=== PATIENT | female | born 1970 | race Caucasian/White ===

== ENCOUNTER → 2024-06-10 15:06 | Outpatient (BNVA) | payer BC, SELFPAY | PROVIDERS: PCP Family Medicine; Visit Provider Physician Assistant Surgical ==

== ENCOUNTER 2024-07-08 07:55 | Outpatient (AMB) | payer BC, SELFPAY ==
--- NOTE | 2024-07-08 08:17 | A.OFFVIS_ITS ---
VS Expanded 07/08/24 08:33 Height 5 ft 1 in Weight 242 lb 8 oz BMI 45.8 Body Fat % 47.6 Body Fat Mass 115.6 Fat Free Mass 127.2 Visceral Fat Rating 16 Body Water % 37.3 Body Water Mass 90.6 Basal Metabolic Rate/Score 1,800 Intake Visit Reasons: TV [facility] SWL BMI 45.9 Allergies amitriptyline Allergy (Intermediate, Verified 07/08/24 08:18) Rash prochlorperazine Allergy (Intermediate, Verified 07/08/24 08:18) Anxiety Sulfa (Sulfonamide Antibiotics) Allergy (Intermediate, Verified 07/08/24 08:18) rash soy Allergy (Mild, Verified 07/08/24 08:18) Gastrointestinal Upset Medication List - Last Reconciled 07/08/24 by Royal Carl MD albuterol sulfate 90 mcg/actuation 2 puffs inhalation Q6H PRN clonidine HCl 0.1 mg PO BEDTIME gabapentin 100 mg PO DAILY gabapentin 800 mg PO TID losartan 100 mg PO DAILY methocarbamol 750 mg PO TID PRN omeprazole 40 mg PO DAILY spironolactone 100 mg PO DAILY HPI HPI TV [facility] SWL BMI 45.9: Details: Start time: 8.10am, End time: 8.50am ?I spent 35 minutes speaking with the patient on the phone plus an additional 5 minutes reviewing and updating records for a total of 40 minutes HPI Comments Details: Previous weight loss efforts: Wegovy and Contrave (no weight loss), keto-diet Wakes up: 6am, Sleeps: 9.30pm Breakfast: skips Lunch: x3/wk (soups, or left over) Dinner: 6pm (chicken, vegetable, carbs) Snacks: (chips) before dinner Exercise: Has a treadmill and a stationary bike at home Fluids: Coffee (2 cups/day with cream and sugar), Tea: none, soda: none, juice: none, ETOH: 1/week (1 glass of wine) PFSH Medical History (Updated 07/08/24 @ 08:26 by Royal Carl MD) Asthma Factor V deficiency GERD (gastroesophageal reflux disease) DJD (degenerative joint disease) Hypertension Obstructive sleep apnea on CPAP Morbid obesity Surgical History (Updated 06/10/24 @ 15:50 by Hilton Milad, RN) Hx of thyroidectomy Hx of hysterectomy Hx laparoscopic cholecystectomy History of tonsillectomy Family History (Updated 06/10/24 @ 15:52 by Hilton Stinson RN) Mother Breast cancer Father Breast cancer Social History (Updated 06/10/24 @ 15:53 by Hilton Stinson RN) Alcohol intake: current Alcohol intake frequency: a few times a month Comment: social Patient Tobacco Use Status: Never used Tobacco Substance Use Type: Marijuana Telehealth Telehealth Telehealth Platform: Telephone Location of provider rendering services: practice address Location of patient: address on file Patient Identification confirmed using: Name, : Yes Telehealth method: voice only Patient verbally consented to treatment: Yes Patient verbally consented to billing insurance company: Yes Patient informed of any privacy concerns related to visit: Yes Minutes spent on Phone/Video with Pt.: 40 Assessment & Plan Assessment & Plan (1) Morbid obesity: Code(s): E66.01 - Morbid (severe) obesity due to excess calories Category: Medical Plan: 1.? Plan for lap sleeve gastrectomy. If diaphragmatic or ventral hernias are present at time of surgery, these will be repaired laparoscopically as well. Risks and complications were discussed in detail including possible conversion to an open procedure, anastomotic leak, bleeding requiring transfusion, small bowel obstruction, , DVT and pulmonary embolism, cardiac, or pulmonary complications, as septic tank installer complications such as anastomotic ulcer, insufficient weight loss and vitamin deficiencies. I emphasized the importance of close follow-up, adherence to instructions and good communication. 2. You will receive a link of our software leena to generate an individualized nutritional and exercise plan specific for you. Please send me a screenshot of the plans you will generate Meal to include lean meat (beef, fish, pork, turkey, chicken), or ethiopian yogurt, or egg whites, or beans with a salad with olive oil and fruits (berries, pears, apples, kiwi). Avoid salt, breads, potatoes, rice, pasta, desserts. ?3. If you choose shakes, each shake would be drunk slowly, like coffee in a period of 2 hours. ?4. If you choose bars, cut each bar in 4 pieces and eat each piece in 30min ?to make each bar last 2 hours. ?5. I emphasized the importance of measuring accurately the food portion and measure it when serving the food in plate ?6. The meal portions include a specific number of forks of meat and salad. You always eat the meat portion but you can replace up to half of salad/vegetables portion with rice, potatoes or pasta, or a fruit ?if you like. The less you do it the better weight loss will be. ?7. One full-size fork is what it can be scooped on the fork without falling aside and not what can be bit with the fork. Use regular forks like those you find in a typical restaurant. ?8.? Please send me weight measurements as soon as possible and then once a week. Always include your diet and exercise plan. 9. The best choice would be to purchase a stationary bike, elliptical or tr eadmill at home that can track calories. Let me know if you do so I can give you an exercise plan. ?10.?Goal is to lose at least 1.5-2lbs per week ?12. Goal to lose 10% of your weight before surgery, which is about 24lbs. Ultimate weight goal: 218lbs before surgery 13. Please follow the diet plan exactly without any change. If you don't like something about the plan or you feel hungry you need to communicate with me so I can help you revise the plan. You should not change the plan yourself. 14. To be scheduled for EGD due to history of GERD. The possibility of biopsies was discussed. Patient needs to avoid use of NSAIDs and aspirin for 1 week prior to EGD. Risks of perforation and bleeding was discussed with the patient. This will be an outpatient procedure with IV sedation. 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, E66.01 - Morbid (severe) obesity due to excess calories, G47.33 - Obstructive sleep apnea (adult) (pediatric), I10 - Essential (primary) hypertension, J45.909 - Unspecified asthma, uncomplicated, K21.9 - Gastro-esophageal reflux disease without esophagitis Ferritin Today 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, E66.01 - Morbid (severe) obesity due to excess calories, G47.33 - Obstructive sleep apnea (adult) (pediatric), I10 - Essential (primary) hypertension, J45.909 - Unspecified asthma, uncomplicated, K21.9 - Gastro-esophageal reflux disease without esophagitis US abdomen comp w elastography Today 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 ECG 12 lead EKG Today 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, E66.01 - Morbid (severe) obesity due to excess calories, G47.33 - Obstructive sleep apnea (adult) (pediatric), I10 - Essential (primary) hypertension, J45.909 - Unspecified asthma, uncomplicated, K21.9 - Gastro-esophageal reflux disease without esophagitis Insulin Today 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, E66.01 - Morbid (severe) obesity due to excess calories, G47.33 - Obstructive sleep apnea (adult) (pediatric), I10 - Essential (primary) hypertension, J45.909 - Unspecified asthma, uncomplicated, K21.9 - Gastro-esophageal reflux disease without esophagitis Hemoglobin A1c Today 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, E66.01 - Morbid (severe) obesity due to excess calories, G47.33 - Obstructive sleep apnea (adult) (pediatric), I10 - Essential (primary) hypertension, J45.909 - Unspecified asthma, uncomplicated, K21.9 - Gastro-esophageal reflux disease without esophagitis H Pylori Breath Test Today 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 Complete Blood Count Auto Diff Today 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 Lipid 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, E66.01 - Morbid (severe) obesity due to excess calories, G47.33 - Obstructive sleep apnea (adult) (pediatric), I10 - Essential (primary) hypertension, J45.909 - Unspecified asthma, uncomplicated, K21.9 - Gastro-esophageal reflux disease without esophagitis IRON PROFILE Today 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 C Reactive Protein Today 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 Vitamin B1 Today 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, E66.01 - Morbid (severe) obesity due to excess calories, G47.33 - Obstructive sleep apnea (adult) (pediatric), I10 - Essential (primary) hypertension, J45.909 - Unspecified asthma, uncomplicated, K21.9 - Gastro-esophageal reflux disease without esophagitis TSH reflex Free T4 Today 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 Vitamin D 25-OH Total Today 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 XR chest 2V Today 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, E66.01 - Morbid (severe) obesity due to excess calories, G47.33 - Obstructive sleep apnea (adult) (pediatric), I10 - Essential (primary) hypertension, J45.909 - Unspecified asthma, uncomplicated, K21.9 - Gastro-esophageal reflux disease without esophagitis FL upper GI w air Today 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 Referrals Nutrition/Dietitian Referral 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 Behavioral Health Referral 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
[2024-07-08 08:33] VITALS: BMI 45.8
== END 2024-07-08 08:51 | disposition home or self-care (01) ==
LOC: HO.HBS 07:55
PROVIDERS: PCP Family Medicine; Visit Provider Surgery
DX: E66.01 Morbid (severe) obesity due to excess calories (principal)
CPT/HCPCS: 99203

== ENCOUNTER → 2024-07-08 07:55 | Outpatient (BNVA) | payer BC, SELFPAY | PROVIDERS: PCP Family Medicine; Visit Provider Surgery ==

== ENCOUNTER 2024-07-15 08:14 | Outpatient (REF) | payer BC, SELFPAY ==
--- NOTE | ~2024-07-15 | US_ITS ---
EXAMINATION: US COMPLETE ABDOMEN WITH LIVER ELASTOGRAPHY CLINICAL INFORMATION: Morbid obesity. COMPARISON: None available. TECHNIQUE: Real-time imaging of the abdominal viscera. Noninvasive ultrasound liver fibrosis assessment is performed using Jaki ElastPQ point quantification shear wave elastography (pSWE) with a C5-2 MHz transducer. Multiple elastography samples are obtained. FINDINGS: PANCREAS: The visualized pancreas appears unremarkable but the pancreatic tail is obscured by bowel gas. ABDOMINAL AORTA: The proximal, middle, and distal aortic segments are normal in caliber. INFERIOR VENA CAVA: Visualized portions are normal. LIVER: The liver is enlarged measuring just under 19 cm in greatest length with increased echogenicity consistent with hepatic steatosis. No focal lesion or intrahepatic biliary duct dilatation. The right lobe measures 18.7 cm in length. The left lobe measures 16.2 cm in length. Portal flow is towards the liver (hepatopetal). Shear wave liver elastography median stiffness is 1.56 m/s (reference: normal median stiffness is 1.3 m/s or less). IQR/median stiffness to assess sampling precision is 0.06 (reference: good quality data set is IQR/median stiffness of 0.15 or less). GALLBLADDER: Status post cholecystectomy. COMMON BILE DUCT: Normal in caliber measuring 0.4 cm in diameter. RIGHT KIDNEY: Normal. No hydronephrosis. No renal calculi or focal parenchymal lesions. The kidney measures 11.1 cm in maximum dimension. LEFT KIDNEY: Normal. No hydronephrosis. No renal calculi or focal parenchymal lesions. The kidney measures 10.5 cm in maximum dimension. SPLEEN: Normal. The spleen measures 10.3 cm in maximum dimension. FREE FLUID: None. US/US abdomen comp w elastography IMPRESSION: 1. Enlarged fatty liver. 2. Liver elastography: In the absence of other known clinical signs, measurements rule out compensated advanced chronic liver disease. If there are known clinical signs, further testing may be needed for confirmation. REFERENCE: Society of Radiologists in Ultrasound Liver Stiffness Thresholds (2020): LIVER STIFFNESS THRESHOLDS: *Liver Stiffness equal or less than 1.3 m/s: High probability of being normal. *Liver Stiffness less than 1.7 m/s: In the absence of other known clinical signs, rules out compensated advanced chronic liver disease. *Liver Stiffness 1.7-2.1 m/s: Suggestive of compensated advanced chronic liver disease but need further test for confirmation. *Liver Stiffness over 2.1 m/s: Rules in compensated advanced chronic liver disease. *Liver Stiffness over 2.4 m/s: Suggestive of clinically significant portal hypertension. QUALITY OF DATA SET: *IQR/Median value equal or less than 0.15 implies a quality data set. *IQR/Median value over 0.15 implies a poor quality data set. SIGNIFICANT CHANGE FROM PRIOR EXAM: Significant change if liver stiffness measurement is 10% or greater from prior exam. OTHER CONSIDERATIONS: The stage of liver fibrosis may be overestimated in the setting of acute hepatitis, liver inflammation, elevated liver function tests, hepatic vascular congestion, obstructive cholestasis, non-fasting state, and infiltrative diseases such as amyloidosis and lymphoma. In some patients with NAFLD, the liver stiffness thresholds for compensated advanced chronic liver disease may be lower. In causes other than viral hepatitis and NAFLD, liver stiffness thresholds are not well established. Electronically signed by: Antoine Avalos MD 07/20/2024 05:05 PM EDT
--- NOTE | ~2024-07-15 | XR_ITS ---
EXAMINATION: XR CHEST CLINICAL INFORMATION: E66.01 - Morbid (severe) obesity due to excess calories COMPARISON: None available. TECHNIQUE: 2 views of the chest were obtained. FINDINGS: The cardiac, hilar, and mediastinal contours are normal. The lungs are clear bilaterally. There is no pneumothorax or pleural effusion. There is no focal osseous or soft tissue abnormality. There are cholecystectomy clips noted. XR/XR chest 2V IMPRESSION: Normal chest. Electronically signed by: Sourav Piña MD 09/24/2024 09:17 PM [facility]
--- NOTE | 2024-07-15 09:02 | ECG_ITS ---
Test Reason : MOR OBS Blood Pressure : / mmHG Vent. Rate : 075 BPM Atrial Rate : 075 BPM P-R Int : 140 ms QRS Dur : 082 ms QT Int : 400 ms P-R-T Axes : 034 -06 025 degrees QTc Int : 446 ms Normal sinus rhythm Possible Inferior infarct , age undetermined Abnormal ECG No previous ECGs available Referred By: Royal Carl Electronically Signed By:NICK BOLES
[2024-07-15 09:21] LABS: MANUAL DIFF FLAG NO
[2024-07-15 09:44] LABS: Basophils Absolute Auto 0.1 X10*3/uL (0.0-0.2); Basophils Percent Auto 0.8 % (0-2); Hematocrit 42.4 % (37.0-47.0); Hemoglobin 14.6 g/dl (12.0-16.0); Imm Gran Abs Auto 0.08 X10*3/uL (0.00-0.03); Imm Gran Pct Auto 0.8 % (0.0-0.4); Lymphocytes Absolute Auto 2.6 X10*3/uL (1.2-4.9); Lymphocytes Percent Auto 25.8 % (20-40); Mean Corpuscular HGB Conc 34.4 g/dl (31.0-35.0); Mean Corpuscular Volume 101.7 fL (80.0-98.0); Mean Platelet Volume 9.5 fL (9.4-12.3); Monocytes Absolute Auto 0.8 X10*3/uL (0.1-1.2); Monocytes Percent Auto 7.5 % (2-11); Neutrophils Absolute Auto 6.7 x10*3/uL (2.0-8.3); Neutrophils Percent Auto 65.1 % (45-73); Platelet Count 313 X10*3/uL (160-400); Red Blood Count 4.17 X10*6/uL (4.20-5.50); Red Cell Distribution Width 12.7 % (11.0-16.0); White Blood Count 10.2 X10*3/uL (4.8-10.8)
[2024-07-15 10:35] LABS: Alanine Aminotransferase 30 U/L (0-31); Albumin Level 4.4 g/dL (3.5-5.0); Alkaline Phosphatase 83 U/L (39-117); Anion Gap 12 (12-20); Aspartate Amino Transferase 35 U/L (5-31); Bilirubin Total 0.6 mg/dL (0.0-1.0); Blood Urea Nitrogen 12 mg/dL (9-16); C Reactive Protein 0.56 mg/dL (< or = 0.50); Calcium 9.1 mg/dL (8.4-10.2); Carbon Dioxide 28 mmol/L (22-29); Chloride 105 mmol/L (96-108); Cholesterol 276 mg/dL (<200); Estimated Glomerular Filt Rate > 60; Glucose Random 103 mg/dL (60-115); HDL Cholesterol 63 mg/dL (>40); Iron 149 mcg/dL (30-160); Percent Iron Saturation 39 % (15-50); Sodium 141 mmol/L (135-145); Total Iron Binding Capacity 381 mcg/dL (228-428); Total Protein 6.9 g/dL (6.5-8.0); Triglycerides 401 mg/dL (<150); Unsaturated Iron Binding 232 ug/dL
[2024-07-15 10:37] LABS: Ferritin 164 ng/mL (10-250); Insulin 9 uU/mL (2-29); TSH reflex Free T4 0.49 uIU/mL (0.32-4.0); Vitamin D 25-OH Total 10.4 ng/mL (>30)
[2024-07-15 10:43] LABS: Folate 8.5 ng/mL (> or = 4.0); Vitamin B12 267 pg/mL (200-900)
[2024-07-15 11:01] LABS: Estimated Average Glucose 97 mg/dL
[2024-07-19 05:08] LABS: Zinc 76 mcg/dL (60-130)
[2024-07-20 19:48] LABS: Vitamin A 76 mcg/dL (38-98)
[2024-07-23 10:09] LABS: Vitamin B1 15 nmol/L (8-30)
== END 2024-07-15 08:15 | disposition home or self-care (01) ==
LOC: HO.US 08:14
PROVIDERS: PCP Family Medicine; Visit Provider Surgery
DX: E66.01 Morbid (severe) obesity due to excess calories (principal); G47.33 Obstructive sleep apnea (adult) (pediatric); I10 Essential (primary) hypertension; K21.9 Gastro-esophageal reflux disease without esophagitis; D68.2 Hereditary deficiency of other clotting factors; J45.909 Unspecified asthma, uncomplicated; Z13.1 Encounter for screening for diabetes mellitus
CPT/HCPCS: 36415; 71046; 76700; 76981; 80053; 80061; 82306; 82607; 82728; 82746; 83036; 83525; 83540; 84425; 84443; 84590; 84630; 85025; 86140; 93005

== ENCOUNTER → 2024-07-15 08:16 | Outpatient (BNV) | payer BC, SELFPAY | PROVIDERS: PCP Family Medicine; Visit Provider Radiology Diagnostic Radiology | DX: E66.01 Morbid (severe) obesity due to excess calories (principal) | CPT/HCPCS: 71046 ==

== ENCOUNTER → 2024-07-27 12:45 | Outpatient (BNVA) | payer BC, SELFPAY | PROVIDERS: PCP Family Medicine; Visit Provider Counselor Mental Health ==

== ENCOUNTER → 2024-07-27 12:45 | Outpatient (AMB) | payer BC, SELFPAY ==
--- NOTE | 2024-07-27 12:00 | MHC.WMTHER ---
Intake Intake Visit Reasons: VIDEO Intake Allergies amitriptyline Allergy (Intermediate, Verified 07/28/24 07:26) Rash prochlorperazine Allergy (Intermediate, Verified 07/28/24 07:26) Anxiety Sulfa (Sulfonamide Antibiotics) Allergy (Intermediate, Verified 07/28/24 07:26) rash soy Allergy (Mild, Verified 07/28/24 07:26) Gastrointestinal Upset PFSH Medical History Abnormal EKG Asthma Factor V deficiency GERD (gastroesophageal reflux disease) DJD (degenerative joint disease) Hypertension Obstructive sleep apnea on CPAP Morbid obesity Surgical History Hx of thyroidectomy Hx of hysterectomy Hx laparoscopic cholecystectomy History of tonsillectomy Family History Mother Breast cancer Father Breast cancer Social History Alcohol intake: current Alcohol intake frequency: a few times a month Comment: social Patient Tobacco Use Status: Never used Tobacco Substance Use Type: Marijuana Behavioral Health Assessment Weight Management Therapy Therapy Notes Details PT is a 54 year old Female, who presents for a visit to complete assessment as part of surgical weight loss program. PT presents very overwhelmed about sudden changes but reports she's interested in changing her life for the good, become a healthier and active person. Presenting Concerns Referral Source WMP-Provider, PT sees Dr. Colin and had initial session on 06/07/24 Reason for referral Completion of behavioral health assessment as part of process for weight-loss surgery. Precipitating Event Obesity Living Situation Current Living Situation Own and Relative's/Guardian's Hermilo At risk of losing current housing? No Satisfied with current living situation? Yes Comments PT lives with and their dog. Food/Weight/Diet Expectations of change Initial Goal to lose 10% of her weight before surgery, which is about 24lbs. Ultimate weight goal: 218lbs before surgery Patient wants feels healthier again, be active and be there for her grandkids. PT is implementing the following: Current meal plan: 3 shakes, 1 meal (8F/8F) at 6pm, 1 extra shake at 7pm Exercise plan: Burn 240Calories in stationary bike. Currently not exercising. History/Relationship with food PT reports she feels her issues are not eating the right foods, having snacks during the day while at work, then dinner was after 7pm with multiple carbs in the meal. States she doesn't eat with feelings but sometimes after a bad day she would do take out instead of cooking. Example of meals before starting the program: Breakfast: never/skips - Coffee only with cream. Lunch: leftovers from night before, sometimes water with coffee and a small bag of chips. Dinner: always a meat, a vegetable, and a starch (example, porch, mash potatoes and veggies). take our 1-2 times at week or a month, the go to was pizza, [place] food or burgers. Snacks: once in a while. chocolate, chips. Drinks/Liquids: 2 Gatorade at day, 4-5 bottles of water, 1 glass of wine w/ dinner, at least 1 coffee in the morning (8oz). History/Relationship with weight Always thick. Ever since she had her daughter was never at her pre- weight. In the last 10 years, the patient's Lowest weight was around 198Lbs and highest 242Lbs. History/Relationship with dieting Weight watchers, lost 20Lbs but then got . Ramiro, had side effects. Prescription weight-loss, was nauseous. Last years she did Hypnosis with [facility] diet. Lost 30Lbs but gained the weigh back after going back to old habits. Binge Eating Do you frequently eat large amounts of food in short periods of time, not feeling physically hungry? No Do you feel out of control when you eat a large amount of food in a short period of time? No Do you eat large amounts of food rapidly and typically alone? No Night Eating Do you wake up at least once during the night to eat? No If you wake up in the night, do you find that it is necessary to eat something in order to fall back asleep? No Do you have little or no appetite in the morning and feel very hungry in the evening, often overeating between dinner and when you go to bed? No Social History Family history and relationship PT is 27 years ago, they have 1 daughter who is 28 y/o. Parents are alive and live in [place] and she has 1 brother. Very close to her 's family who lives in the same town. 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 Developmental history and status None reported Currently WNL. Social support , daughter, parents. Community support Coworkers are very encouraging Mu-Ism/Spirituality Bahai. Cultural/Ethnic information . Legal Involvement and History Current or historical involvement with the legal system? None reported. Education Highest grade completed Some college. Preferred learning style Learn by doing Currently enrolled in educational program? No Interested in further educational program? 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 No Meaningful activities watch TV, likes to be around people, enjoy her home. Financial Situation Describe current financial situation Occasional struggle and Often struggles with finance Financial assistance? SSI (From .) and Contributions from your family/friends Service Service? No Mental Health and Addiction Treatment Current/Past substance abuse? Yes (Cannabis since age 23.) Comments Alcohol: couple times at week with dinner, 1 glass of wine. Cigarettes/Tobacco: None. Cannabis/Edibles: Smoke cannabis daily at night for sleep. Current/Past addictive behavior concerns? No Psychiatric history PT has been in counseling before. last time 8 years ago due to life stressors and around that time she took some medication. Questionnaires PHQ-9 Over the last 2 weeks, how often have you been bothered by any of the following problems? 1. Little interest or pleasure in doing things: several days 2. Feeling down, depressed, or hopeless: not at all 3. Trouble falling or staying asleep, or sleeping too much: nearly every day 4. Feeling tired or having little energy: nearly every day 5. Poor appetite or overeating: several days 6. Feeling bad about yourself - or that you are a failure or have let yourself or your family down: nearly every day 7. Trouble concentrating on things, such as reading the newspaper or watching television: not at all 8. Moving or speaking so slowly that other people could have noticed. Or the opposite - being so fidgety or restless that you have been moving around a lot more than usual: not at all 9. Thoughts that you would be better off or of hurting yourself in some way: not at all Total score: 11 Depression Screening Interpretation: Positive (Scores from new PT pack.) Depression Screening Done: Yes Source: Developed by Drs. Eddie Gayle, Niurka Harrell, Aguilar Roque and colleagues, with an educational xenia from [employer]. Binge Eating Scale Group 1 A. I don't feel self-conscious about my wt. or body size when I'm with others. B. I feel concerned about how I look to others, but it normally does not make me fell disappointed with myself C. I do get self-conscious about my appearance and wt. which makes me feel disappointed in myself. D. I feel very self-conscious about my wt. and frequently I feel intense shame and disgust for myself. I try to avoid social contacts because of my self-consciousness. Response Group 1: C Group 2 A. I don't have any difficulty eating slowly in the proper manner. B. Although I seem to gobble down foods, I don't end up feeling stuffed because of eating to much. C. At times, I tend to eat quickly and then, I feel uncomfortably full afterwards. D. I have the habit of bolting down my food, without really chewing it. When this happens I usually feel uncomfortably stuffed because I've eaten to much. Response Group 2: A Group 3 A. I feel capable to control my eating urges when I want to. B. I feel like I have failed to control my eating more than the average person. C. I feel utterly helpless when it comes to feeling in control of my eating urges. D. Because I feel so helpless about controlling my eating I have become very desperate about trying to get control. Response Group 3: A Group 4 A. I don't have the habit of eating when I'm bored. B. I sometimes eat when I'm bored, but often I'm able to get busy and get my mind off food. C. I have a regular habit of eating when I'm bored, but occasionally, I can use some other activity to get my mind off eating. D. I have a strong habit of eating when I'm bored. Nothing seems to help me breath the habit. Response Group 4: A Group 5 A. I'm usually physically hungry when I eat something. B. Occasionally, I eat something on impulse even though I really am not hungry. C. I have the regular habit of eating foods, that I might not really enjoy, to satisfy a hungry feeling even though physically, I don't need the food. D. Although I'm not physically hungry, I get a hungry feeling in my mouth that only seems to be satisfied when I eat a food, like sandwich, that fills my mouth. Sometimes, when I eat the food to satisfy my mouth hunger, I then spit the food out so I won't gain weight. Response Group 5: A Group 6 A. I don't feel any guilt or self-hate after I overeat. B. After I overeat, occasionally I feel guilt or self-hate. C. Almost all the time I experience strong guilt or self-hate after I overeat. Response Group 6: A Group 7 A. I don't lose total control of my eating when dieting even after periods when I overeat. B. Sometimes when I eat a forbidden food on a diet, I feel like I blew it and eat even more. C. Frequently, I have the habit of saying to myself, I've blown it now, why not go all the way, when I overeat on a diet. When that happens I eat more. D. I have a regular habit of starting a strict diets for myself but I break the diets by going on an eating binge. My life seems to be either a feast or famine. Response Group 7: D Group 8 A. I rarely eat so much food that I feel uncomfortably stuffed afterwards. B. Usually about once a month, I each such a quantity of food, I end up feeling very stuffed. C. I have regular periods during the month when I eat large amounts of food, either at mealtime or at snacks. D. I eat so much food that I regularly feel quite uncomfortable after eating and sometimes a bit nauseous. Response Group 8: A Group 9 A. My level of calorie intake does not go up very high or go down very low on a regular basis. B. Sometimes after I overeat, I will try to reduce my caloric intake to almost nothing to compensate for the excess calories I've eaten. C. I have a regular habit of overeating during the night. It seems that my routine is not to be hungry in the morning but overeat in the evening. D. In my adult years, I have had week-long periods where I practically starve myself. This follows periods when I overeat. It seems I live a life of either feast or famine. Response Group 9: A Group 10 A. I usually am able to stop eating when I want to. I know when enough is enough. B. Every so often, I experience a compulsion to eat which I can't seem to control. C. Frequently, I experience strong urges to eat which I seem unable to control, but at other times I can control my eating urges. D. I feel incapable of controlling urges to eat. I have a fear of not being able to stop eating voluntarily. Response Group 10: B Group 11 A. I don't have any problem stopping eating when I feel full. B. I usually can stop eating when I feel full but occasionally overeat leaving me feeling uncomfortably stuffed. C. I have a problem stopping eating once I start and usually I feel uncomfortably stuffed after I eat a meal. D. Because I have a problem not being able to stop eating when I want, I sometimes have to induce vomiting to relieve my stuffed feeling. Response Group 11: B Group 12 A. I seem to eat just as much when I'm with others, Family social gatherings as when I'm by myself. B. Sometimes, when I'm with other persons, I don't eat as much as I want to eat because I'm self-conscious about my eating. C. Frequently, I eat only a small amount of food when others are present, because I'm very embarrassed about my eating. D. I feel so ashamed about overeating that I pick times to overeat when I know no one will see me. I feel like a closet eater. Response Group 12: A Group 13 A. I eat three meals a day with only an occasional between meal snack. B. I eat 3 meals a day, but I also normally snack between meals. C. When I am snacking heavily, I get in the habit of skipping regular meals. D. There are regular periods when I seem to be continually eating, with no planned meals. Response Group 13: D Group 14 A. I don't think much about trying to control unwanted eating urges. B. At least some of the time, I feel my thoughts are pre-occupied with trying to control my eating urges. C. I feel that frequently I spend much time thinking about how much I ate or about trying not to eat anymore. D. It seems to me that most of my waking hours are pre-occupied by thoughts about eating or not eating. I feel like I'm constantly struggling not to eat. Response Group 14: A Group 15 A. I don't think about food a great deal. B. I have strong craving for food but they last only for brief periods of time. C. I have days when I can't seem to think about anything else but food. D. Most of my days seem to be pre-occupied with thoughts about food. I feel like I live to eat. Response Group 15: A Group 16 A. I usually know whether or not I'm physically hungry. I take the right portion of food to satisfy me. B. Occasionally, I feel uncertain about knowing whether or not I'm physically hungry. A these times it's hard to know how much food I should take to satisfy me. C. Even though I might know how many calories I should eat, I don't have any idea what is a normal amount of food for me. Response Group 16: C Binge Eating Score: 12 Score less than 17 Minimal Risk Score between 18-26 Moderate Risk Score between 27-46 High Risk Assessment & Plan Assessment & Plan (1) Adjustment disorder, unspecified: Code(s): F43.20 - Adjustment disorder, unspecified Plan PT not cleared today. We will meet again on 08/15/24 at 10am, to continue assessment. Telehealth Telehealth Telehealth Platform: [facility] Location of provider rendering services: other ([place], [place]) Location of patient: other ([facility]) Patient Identification confirmed using: Name, : Yes Telehealth method: voice only Patient verbally consented to treatment: Yes Patient verbally consented to billing insurance company: Yes Patient informed of any privacy concerns related to visit: Yes Minutes spent on Phone/Video with Pt.: 60 Coding Level of Care Code New Pt Tele Psy Diag Feng ([id number]) Patient Type New Diagnoses Adjustment disorder, unspecified F43.20 Time Spent (min) 60 Comment Start time: 12:00pm, End time: 1:00pm
== END ==
LOC: HO.HBST 12:45
PROVIDERS: PCP Family Medicine; Visit Provider Counselor Mental Health
DX: F43.20 Adjustment disorder, unspecified (principal)
CPT/HCPCS: 90791

== ENCOUNTER 2024-07-28 06:55 | Day surgery (SDC) | payer BC, SELFPAY ==
[2024-07-26 10:54] VITALS: BMI 45.7
--- NOTE | 2024-07-26 14:30 | HO.ANESPROP2 ---
Documented by User: Keren Broussard NP 07/26/24 14:31 HPI - Anesthesia Eval Consult details Narrative: 54yo F for Upper Endoscopy PMFSH Active Problems Active Problems: All Active Problems Abnormal EKG (Acute) Asthma (Acute) Factor V deficiency (Acute) GERD (gastroesophageal reflux disease) (Acute) DJD (degenerative joint disease) (Acute) Hypertension (Acute) Obstructive sleep apnea on CPAP (Acute) Morbid obesity (Acute) Past Medical History Medical History Abnormal EKG Asthma Factor V deficiency GERD (gastroesophageal reflux disease) DJD (degenerative joint disease) Hypertension Obstructive sleep apnea on CPAP Morbid obesity Family History Family History Mother Breast cancer Father Breast cancer Surgical History Surgical History Hx of thyroidectomy Hx of hysterectomy Hx laparoscopic cholecystectomy History of tonsillectomy Social History Social History Alcohol intake: current Alcohol intake frequency: a few times a month Comment: social Patient Tobacco Use Status: Never used Tobacco Use of substances other than those prescribed or required for medical reasons: Yes Substance Use Type: Marijuana Are you DNR?: No Advance Directives: No Advance Directives Information Provided: Yes Meds Allergies Allergy/AdvReac Type Severity Reaction Status Date / Time amitriptyline Allergy Intermediate Rash Verified 07/28/24 07:26 prochlorperazine Allergy Intermediate Anxiety Verified 07/28/24 07:26 Sulfa (Sulfonamide Allergy Intermediate rash Verified 07/28/24 07:26 Antibiotics) soy Allergy Mild Gastrointestinal Verified 07/28/24 07:26 Upset Home Medications ?Medication ?Instructions ?Recorded ?Confirmed ?Last Taken ?Type clonidine HCl 0.1 mg tablet 0.1 mg PO BEDTIME 06/10/24 07/28/24 Unknown History gabapentin 100 mg capsule 100 mg PO DAILY 06/10/24 07/28/24 Unknown History gabapentin 800 mg tablet 800 mg PO TID 06/10/24 07/28/24 Unknown History losartan 100 mg tablet 100 mg PO DAILY 06/10/24 07/28/24 Unknown History methocarbamol 750 mg tablet 750 mg PO TID PRN Pain 06/10/24 07/28/24 Unknown History albuterol sulfate 90 mcg/actuation 2 puff inhalation Q6H PRN SOB 07/08/24 07/28/24 Unknown History aerosol inhaler omeprazole 40 mg capsule,delayed 40 mg PO DAILY 07/08/24 07/28/24 Unknown History release spironolactone 50 mg tablet 100 mg PO DAILY 07/08/24 07/28/24 Unknown History Exam Height,Weight and Vital Signs: Height 5 ft 1 in Weight 109.769 kg Assessment and Plan Assessment Anesthesia Assessment: Chart Reviewed Documented by User: Ngozi Painter MD 07/28/24 07:55 PMFSH Past Medical History Medical History Abnormal EKG Asthma Factor V deficiency GERD (gastroesophageal reflux disease) DJD (degenerative joint disease) Hypertension Obstructive sleep apnea on CPAP Morbid obesity Family History Family History Mother Breast cancer Father Breast cancer Surgical History Surgical History Hx of thyroidectomy Hx of hysterectomy Hx laparoscopic cholecystectomy History of tonsillectomy History of Problems with Anesthesia: No Social History Social History Alcohol intake: current Alcohol intake frequency: a few times a month Comment: social Patient Tobacco Use Status: Never used Tobacco Use of substances other than those prescribed or required for medical reasons: Yes Substance Use Type: Marijuana Are you DNR?: No Advance Directives: No Advance Directives Information Provided: Yes Meds Allergies Allergy/AdvReac Type Severity Reaction Status Date / Time amitriptyline Allergy Intermediate Rash Verified 07/28/24 07:26 prochlorperazine Allergy Intermediate Anxiety Verified 07/28/24 07:26 Sulfa (Sulfonamide Allergy Intermediate rash Verified 07/28/24 07:26 Antibiotics) soy Allergy Mild Gastrointestinal Verified 07/28/24 07:26 Upset Home Medications ?Medication ?Instructions ?Recorded ?Confirmed ?Last Taken ?Type clonidine HCl 0.1 mg tablet 0.1 mg PO BEDTIME 06/10/24 07/28/24 Unknown History gabapentin 100 mg capsule 100 mg PO DAILY 06/10/24 07/28/24 Unknown History gabapentin 800 mg tablet 800 mg PO TID 06/10/24 07/28/24 Unknown History losartan 100 mg tablet 100 mg PO DAILY 06/10/24 07/28/24 Unknown History methocarbamol 750 mg tablet 750 mg PO TID PRN Pain 06/10/24 07/28/24 Unknown History albuterol sulfate 90 mcg/actuation 2 puff inhalation Q6H PRN SOB 07/08/24 07/28/24 Unknown History aerosol inhaler omeprazole 40 mg capsule,delayed 40 mg PO DAILY 07/08/24 07/28/24 Unknown History release spironolactone 50 mg tablet 100 mg PO DAILY 07/08/24 07/28/24 Unknown History Exam Airway Mallampati Class: III TM Dist: >3cm Neck ROM: Full Loose/Missing/Broken Teeth: No Heart: RRR Lungs: CTA Assessment and Plan Assessment Anesthesia Assessment: Anesthesia Plan Discussed Final Anesthetic Review History of Problems with Anesthesia: No NPO: Yes ASA Class: III Final Preanesthetic Review: Meds/Allgs Chart Reviewed, Consent Obtained/Reviewed and Anes Risks/Benef Reviewed Patient Risk: Intermediate Procedure Risk: Intermediate Anesthetic Plan Anesthetic Plan: MAC: Disposition: Standard PACU
[2024-07-28 07:22] VITALS: BP 155/114; PULSE 87; RESP 18; TEMP 36.9; O2SAT 96; BMI 45.7
--- NOTE | 2024-07-28 07:37 | MHC.SHP ---
Pre-Procedural Eval Section A - 24 Hr Update-Section A only Date of Service: 07/28/24 The patient is an INPATIENT: No The patient has been examined within 24 hours of the surgical procedure. The History & Physical has been completed within 30 days and I have reviewed it.: Yes Section B - Complete if H&P > 30 days Chief Complaint: Morbid (severe) obesity due to excess calories Details of Present Illness: GERD Relevant Family History (Specify if Yes): No Relevant Social History: None Present Medications: None Medical History: No relevant PMH History of Previous Operations: No relevant previous surgery Allergies: Allergies Allergy/AdvReac Type Severity Reaction Status Date / Time amitriptyline Allergy Intermediate Rash Verified 07/28/24 07:26 prochlorperazine Allergy Intermediate Anxiety Verified 07/28/24 07:26 Sulfa (Sulfonamide Allergy Intermediate rash Verified 07/28/24 07:26 Antibiotics) soy Allergy Mild Gastrointestinal Verified 07/28/24 07:26 Upset Review of Systems Sugical H&P ROS: Negative: Constitution, Cardiovascular, Respiratory, Neurological, Psychiatric, Hem-Onc, Allergic/Immunologic, Gastrointestinal, Genitourinary, Musculoskeletal, Integumentary, Endocrine and Eyes/Ears/Nose/Throat Exam Surgical H&P Exam: Normal: HEENT, Normal: Heart, Normal: Lungs, Normal: Extremities, Normal: Abdomen, Normal: Skin and Normal: Neurological Plan Diagnosis/Plan: Unchanged (EGD to assess etiology of GERD. Risks of bleeding and perforation were discussed with the patient and she is in agreement with the plan.) I have reviewed the history and physical and performed a pertinent physical examination on my patient. No changes have occurred unless specified. Time Spent With Patient Time: Total time managing care of this patient today ____ minutes.
[2024-07-28] MEDS: Lactated Ringers 1,000 ML 100 ML IVCONT (07:38)
--- NOTE | 2024-07-28 07:48 | P.BOP_ITS ---
Brief Operative Note Date of Service: 07/28/24 Pre-op diagnosis: GERD Post-op diagnosis: same Procedure: PROCEDURE DATE: 07/28/2024 PREOPERATIVE DIAGNOSIS: GERD POSTOPERATIVE DIAGNOSIS: ?Same as above. 1) fixed modrate size hiatal hernia, 2) distal gastritis, 3) duodenitis, 4) bile reflux PROCEDURE: Lweutqcd-vgwiwa-oklfjfctokak with biopsies Surgeon: ?Myron Carl M.D.. Ph.D. Data Management Associate: None ? Anesthesia: IV sedation Estimated blood loss: ?Minimal FINDINGS AND PROCEDURE: ? OPERATIVE INDICATIONS: ?The patient is a 54 year old female known to me who is interested in bariatric surgery. The patient has GERD. Based on this information I recommended an upper endoscopy to evaluate the patient's symptoms. Risks and complications of the surgery were discussed with the patient in advance particularly the possibility of perforation or bleeding that may require surgical intervention. The patient understood the risks and was in agreement with the plan. ? PROCEDURE: After informed consent was obtained by the patient, the patient was ?transferred to the Operating Room and was placed in the supine position.? After successful induction of IV sedation, a mouth block was inserted and the patient was placed in the left lateral decubitus position. An upper endoscopy was performed next, the oropharynx and esophagus appeared within the normal limits. There was a moderate size fixed 4-5cm hiatal hernia with obvious bile reflux that was witnessed all the way to the upper esophagus. The z-line was smooth. Two biopsies were obtained from the distal esophagus 2-3 cm proximal to the GE junction and two additional biopsies from the GE junction. The stomach was entered and it appeared to be of normal size. There was gastritis throughout the stomach. There was no stricture or ulcer. A biopsy was obtained from the gastric fundus and the antrum. No significant bleeding was noted from any of the biopsy sites. Retroflexion of the scope confirmed the presence of the large diaphragmatic hernia. The scope was then advanced into the duodenum which appeared to have inflammation with erythema. A biopsy was obtained from one of these sites.. At that point the duodenum ?and the stomach were decompressed and the scope was withdrawn from the patient's mouth. The patient extubated and was transferred in stable condition to the Recovery Room for further care. I was present and performed all steps of the procedure. There were no residents to assist with this case. Myron Carl M.D., Ph.D. Surgeon: Royal Carl MD Anesthesia: MAC Was an Data Management Associate used for this Procedure?: No Estimated blood loss (mL): 0 IV fluids (mL): 400 Urine output (mL): 0 (No Heredia to record output) Pathology: other (1) antrum x1, 2) fundus x1, 3) GE junction x2, 4) distal esophagus x2, 5) duodenum x1) Condition: stable Disposition: PACU
[2024-07-28 08:26] VITALS: BP 129/78; PULSE 93; RESP 16; TEMP 36.6; O2SAT 96
[2024-07-28 08:41] VITALS: BP 139/99; PULSE 85; RESP 16; TEMP 36.6; O2SAT 98
== END 2024-07-28 09:03 | disposition home or self-care (01) ==
PROVIDERS: PCP Family Medicine; Visit Provider Surgery
PROC: 0DJ08ZZ Inspection of Upper Intestinal Tract, Via Natural or Artificial Opening Endoscopic (ICD-10-PCS; CPT 43235; principal; 2024-07-28 07:30)
DX: K21.9 Gastro-esophageal reflux disease without esophagitis (principal); E66.01 Morbid (severe) obesity due to excess calories; Z68.42 Body mass index [BMI] 45.0-49.9, adult; K29.50 Unspecified chronic gastritis without bleeding; K29.80 Duodenitis without bleeding; K44.9 Diaphragmatic hernia without obstruction or gangrene; I10 Essential (primary) hypertension; E89.0 Postprocedural hypothyroidism; D68.2 Hereditary deficiency of other clotting factors; G47.33 Obstructive sleep apnea (adult) (pediatric); J45.909 Unspecified asthma, uncomplicated; Z99.89 Dependence on other enabling machines and devices; Z79.899 Other long term (current) drug therapy; Z88.2 Allergy status to sulfonamides; Z88.8 Allergy status to other drugs, medicaments and biological substances; Z90.49 Acquired absence of other specified parts of digestive tract
CPT/HCPCS: 43239; 88305; 88313; 88342; J1596; J1920; J2003; J2250; J2704

== ENCOUNTER → 2024-07-28 06:55 | Outpatient (BNV) | payer BC, SELFPAY | PROVIDERS: PCP Family Medicine; Visit Provider Surgery | DX: K44.0 Diaphragmatic hernia with obstruction, without gangrene (principal) | CPT/HCPCS: 43239 ==

== ENCOUNTER → 2024-08-05 09:00 | Outpatient (REF) | payer BC, SELFPAY ==
--- NOTE | 2024-08-05 09:03 | CA_ITS ---
Transthoracic Echocardiogram Patient (Last, First, Middle): Soraida Ruggiero A Gender: Female Date of : 1970 Age: 54 Procedure Date: 08/05/2024 Procedure Type: Transthoracic Echocardiogram Location: OP Height: 152. cm Weight: 109.77 kg BSA: 2.02 m2 Heart Rate: bpm BP: 120 / 90 mmHg Vehicle Insurance Agent: EDUARDO Burroughs MD: Royal Carl MD Chamfering Machine Operator: Robbi Moreno MD Symptoms: R94.31 - Abnormal electrocardiogram [ECG] [EKG] Study Quality: Technically Difficult ECG Rhythm: Sinus Conclusions: - 1. Technically limited study 2. Normal LV ejection fraction of 55-60% 3. Normal cardiac valvular Dopplers 4. Mildly dilated ascending aorta at 4.3 cm 5. Normal RV systolic pressure Findings Procedure Information Contrast agent, definity, is being given per protocol without apparent complications. Left Ventricle Normal left ventricular size, thickness, and systolic function. The visually estimated ejection fraction is between 55-60%. Spectral Doppler is indicative of a normal filling pattern. Right Ventricle The right ventricle was not well visualized. Normal right ventricular cavity size. Atria The left atrium was not well visualized. Interatrial shunt cannot be excluded. The right atrium was not well visualized. Aortic Valve The aortic valve was not well visualized. There is no aortic valve stenosis. There is no aortic valve regurgitation. Mitral Valve Likely normal mitral valve structure and function. There is trace mitral valve regurgitation. There is no mitral valve stenosis. Pulmonic Valve The pulmonic valve is likely normal. There is trace pulmonic valve regurgitation. Tricuspid Valve Likely normal tricuspid valve structure and function. There is trace tricuspid valve regurgitation. The right ventricular systolic pressure is normal. The right ventricular systolic pressure is 15 mmHg. Normal right atrial pressure. There is no evidence of pulmonary hypertension. Great Vessels The pulmonary artery was not well visualized. There is mild dilatation of the ascending aorta measuring 4.30 cm. Venous The inferior vena cava is normal in size and collapses greater than 50% with inspiration. Pericardium/Pleural The pericardium was not well visualized. Prior Study Comparison No prior study available for comparison. Measurements 2D Linear Measurements IVSd: 0.93 0.6-0.9/0.6-1.0 cm LVIDd: 4.23 3.9-5.3/4.2-5.9 cm LVIDd Index: 2.09 2.4-3.2/2.2-3.1 cm/m2 LVIDs: 2.16 2.0-3.6 cm LVPWd: 0.89 0.7-1.1 cm LA Diam: 4.10 2.7-3.8/3.0-4.0 cm LAIDs Index: 2.03 1.5-2.3 cm/m2 LV Mass: 151.59 67-162/88-224 g LV Mass Index: 75.04 43-95/49-115 g/m2 LVOT Diam: 1.90 3.0+(-)1.3 cm 2D Systolic Function EF 4C: 57.70 >55% EF 2C: 53.00 >55% EF BiP: 55.10 >55% Mitral Valve MV Pk E: 0.70 MV PK A: 0.72 MV Decel Time: 255.00 E/A: 1.00 E'Lateral: 8.16 E'Medial: 5.55 E/E' Med: 12.60 E/E' Lat: 8.60 PHT: 75.00 MVA PHT: 2.93 Decel Bond: 2.74 Aortic Valve AoV Pk Cecil: 1.39 AoV Mn Cecil: 0.98 AoV VTI: 0.26 AoV Pk Grad: 8.00 Aov Mn Grad: 4.00 ARTHUR Cont.VTI: 2.48 LVOT LVOT Pk Cecil: 1.19 LVOT Mn Cecil: 0.81 LVOT VTI: 0.23 LVOT Pk Grad: 6.00 LVOT Mn Grad: 3.00 LVOT Diam: 1.90 LVOT Area: 2.84 Diastolic Function MV Pk E: 0.70 MV Pk A: 0.72 E/A: 1.00 E'Medial: 5.55 E/E' Med: 12.60 E' Laterial: 8.16 E/E' Lat: 8.60 Right Ventricle TAPSE (mm): 16.50 TVS' Cecil: 9.14 Tricuspid Valve TR Pk Cecil: 1.70 TR Pk Grad: 12.00 RA Press: 3.00 RVSP: 15.00 Great Vessels Aorta Sinus of Valsalva: 3.50 2.0-3.5 cm Ao Asc: 4.30 2.1-3.4 cm Ao Arch: 2.60 Pulmonary Valve PV Pk Cecil: 0.69 Peak PV Grad: 2.00 Updated in Other Vendor System with Status of Final Robbi Moreno MD electronically signed on 08/07/2024 12:40:45 PM with status of Final
--- NOTE | 2024-08-05 09:03 | CA_ITS ---
Acquisition Time: 2024-08-05 09:53:00 Total Exercise Time: 00:05:01 Test Indications: Abnormal ECG Medications: ALBUTEROL CLONIDINE GABAPENTIN LOSARTAN METHOCARBAMOL OMEPRAZOLE SPIRONALACTONE Protocol: SARKIS Max HR: 166 BPM 98% of Pred: 168 BPM Max BP: 194/112 mmHG Max Work Load: 7.0 METS Exercise stress test with exercise 5 min 1 sec of Sarkis protocol, achieving 96% MPHR, with moderate shortness of breath, no chest discomfort, with isolated PAC and PVC, with BP 118/78 at baseline with rise to 194/112 with exercise, without EKG changes meeting criteria for ischemia. In recovery her breathing quickly improved and BP came down to 134/96. She did not take her am Losartan and Spironolactone prior to the test. She was allowed to take them in recovery. Test reviewed with Dr Moreno Referred By: Royal Carl Overread By: ORION FARLEY
== END ==
LOC: HO.CARD 09:00
PROVIDERS: PCP Family Medicine; Visit Provider Surgery
DX: R94.31 Abnormal electrocardiogram [ECG] [EKG] (principal)
CPT/HCPCS: 93017; 93306; Q9957

== ENCOUNTER → 2024-08-05 09:03 | Outpatient (BNV) | payer BC, SELFPAY | PROVIDERS: PCP Family Medicine; Visit Provider Nurse Practitioner Family | DX: I49.1 Atrial premature depolarization (principal); I49.3 Ventricular premature depolarization | CPT/HCPCS: 93016; 93018; 93320; 93325; 93350; 93352 ==

== ENCOUNTER → 2024-08-15 10:13 | Outpatient (BNVA) | payer BC, SELFPAY | PROVIDERS: PCP Family Medicine; Visit Provider Counselor Mental Health ==

== ENCOUNTER → 2024-08-15 10:13 | Outpatient (AMB) | payer BC, SELFPAY ==
--- NOTE | 2024-08-15 10:10 | A.OFFWM_ITS ---
Intake Intake Visit Reasons: VIDEO F/U Allergies amitriptyline Allergy (Intermediate, Verified 07/28/24 07:26) Rash prochlorperazine Allergy (Intermediate, Verified 07/28/24 07:26) Anxiety Sulfa (Sulfonamide Antibiotics) Allergy (Intermediate, Verified 07/28/24 07:26) rash soy Allergy (Mild, Verified 07/28/24 07:26) Gastrointestinal Upset PFSH Medical History Abnormal EKG Asthma Factor V deficiency GERD (gastroesophageal reflux disease) DJD (degenerative joint disease) Hypertension Obstructive sleep apnea on CPAP Morbid obesity Surgical History Hx of thyroidectomy Hx of hysterectomy Hx laparoscopic cholecystectomy History of tonsillectomy Family History Mother Breast cancer Father Breast cancer Social History Alcohol intake: current Alcohol intake frequency: a few times a month Comment: social Patient Tobacco Use Status: Never used Tobacco Substance Use Type: Marijuana Behavioral Health Assessment Weight Management Therapy Therapy Notes Details PT is a 54 year old Female, who presents for a visit to complete assessment as part of surgical weight loss program. PT presents very overwhelmed about sudden changes but reports she's interested in changing her life for the good, become a healthier and active person. PT stated she has been in counseling before, last time 8 years ago due to life stressors and around that time she took some medication. She has been off of meds for about 5 years and reports feeling stable. PT denies ever bee hospitalized and/or in Crisis for M, also there is no history of substance use and/or safety concerns around self-harm/other-harm. PHQ-9 scores showed no active Sx of depression and BES suggested lower risk for binge eating. PT denies any active emotional/stress eating and per statements and mental status exam her functioning is intact. PT has been cleared from standpoint. Presenting Concerns Referral Source [facility]-Provider, PT sees Dr. Colin and had initial session on 06/07/24 Reason for referral Completion of behavioral health assessment as part of process for weight-loss surgery. Precipitating Event Obesity Living Situation Current Living Situation Own and Relative's/Guardian's Hermilo At risk of losing current housing? No Satisfied with current living situation? Yes Comments PT lives with and their dog. Food/Weight/Diet Expectations of change Initial Goal to lose 10% of her weight before surgery, which is about 24lbs. Ultimate weight goal: 218lbs before surgery Patient wants feels healthier again, be active and be there for her grandkids. PT is implementing the following: Current meal plan: 3 shakes, 1 meal (8F/8F) at 6pm, 1 extra shake at 7pm Exercise plan: Burn 240Calories in stationary bike. Currently not exercising. History/Relationship with food PT reports she feels her issues are not eating the right foods, having snacks during the day while at work, then dinner was after 7pm with multiple carbs in the meal. States she doesn't eat with feelings but sometimes after a bad day she would do take out instead of cooking. Example of meals before starting the program: Breakfast: never/skips - Coffee only with cream. Lunch: leftovers from night before, sometimes water with coffee and a small bag of chips. Dinner: always a meat, a vegetable, and a starch (example, porch, mash potatoes and veggies). take our 1-2 times at week or a month, the go to was pizza, [employer] food or burgers. Snacks: once in a while. chocolate, chips. Drinks/Liquids: 2 Gatorade at day, 4-5 bottles of water, 1 glass of wine w/ dinner, at least 1 coffee in the morning (8oz). History/Relationship with weight Always thick. Ever since she had her daughter was never at her pre- weight. In the last 10 years, the patient's Lowest weight was around 198Lbs and highest 242Lbs. History/Relationship with dieting Weight watchers, lost 20Lbs but then got . Wegovy, had side effects. Prescription weight-loss, was nauseous. Last years she did Hypnosis with [facility] diet. Lost 30Lbs but gained the weigh back after going back to old habits. Binge Eating Do you frequently eat large amounts of food in short periods of time, not feeling physically hungry? No Do you feel out of control when you eat a large amount of food in a short period of time? No Do you eat large amounts of food rapidly and typically alone? No Night Eating Do you wake up at least once during the night to eat? No If you wake up in the night, do you find that it is necessary to eat something in order to fall back asleep? No Do you have little or no appetite in the morning and feel very hungry in the evening, often overeating between dinner and when you go to bed? No Social History Family history and relationship PT is 27 years ago, they have 1 daughter who is 28 y/o. Parents are alive and live in [place] and she has 1 brother. Very close to her 's family who lives in the same town. 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 Developmental history and status None reported Currently WNL. Social support , daughter, parents. Community support Coworkers are very encouraging Zoroastrianism/Spirituality Faith. Cultural/Ethnic information . Legal Involvement and History Current or historical involvement with the legal system? None reported. Education Highest grade completed Some college. Preferred learning style Learn by doing Currently enrolled in educational program? No Interested in further educational program? 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 No Meaningful activities watch TV, likes to be around people, enjoy her home. Financial Situation Describe current financial situation Occasional struggle and Often struggles with finance Financial assistance? SSI (From .) and Contributions from your family/friends Service Service? No Mental Health and Addiction Treatment Current/Past substance abuse? Yes (Cannabis since age 23.) Comments Alcohol: couple times at week with dinner, 1 glass of wine. Cigarettes/Tobacco: None. Cannabis/Edibles: Smoke cannabis daily at night for sleep. Current/Past addictive behavior concerns? No Psychiatric history PT has been in counseling before. Last time 8 years ago due to life stressors and around that time she took some medication. She has charlie off of meds for about 5 years. Pt reports she has never been hospitalized and/or in Crisis for MH. Medical and Physical Health Summary Additional Medical History not covered in history Pt reports having sleep apnea, HBP, stomach/GI issues, Sexual History concerns None reported. Physical exam in the last year? No Pain Screening Current pain? Yes Pain in the last few months? Yes Comments -Due to back issues. -Getting steroids injections at the end of the month. Medications Is the patient compliant with medications? Yes Does the patient have Alicea Guardian in place? Not applicable Does the patient use complimentary health approaches? No Trauma/Abuse History History of trauma? No Questionnaires PHQ-9 Over the last 2 weeks, how often have you been bothered by any of the following problems? 1. Little interest or pleasure in doing things: not at all 2. Feeling down, depressed, or hopeless: not at all 3. Trouble falling or staying asleep, or sleeping too much: not at all 4. Feeling tired or having little energy: several days 5. Poor appetite or overeating: not at all 6. Feeling bad about yourself - or that you are a failure or have let yourself or your family down: several days 7. Trouble concentrating on things, such as reading the newspaper or watching television: not at all 8. Moving or speaking so slowly that other people could have noticed. Or the opposite - being so fidgety or restless that you have been moving around a lot more than usual: not at all 9. Thoughts that you would be better off or of hurting yourself in some way: not at all Total score: 2 Depression Screening Interpretation: Negative Depression Screening Done: Yes 59784 - PHQ-9 Billing: Yes Source: Developed by Drs. Eddie Gayle, Niurka Harrell, Aguilar Roque and colleagues, with an educational xenia from [employer]. Binge Eating Scale Group 1 A. I don't feel self-conscious about my wt. or body size when I'm with others. B. I feel concerned about how I look to others, but it normally does not make me fell disappointed with myself C. I do get self-conscious about my appearance and wt. which makes me feel disappointed in myself. D. I feel very self-conscious about my wt. and frequently I feel intense shame and disgust for myself. I try to avoid social contacts because of my self- consciousness. Response Group 1: C Group 2 A. I don't have any difficulty eating slowly in the proper manner. B. Although I seem to gobble down foods, I don't end up feeling stuffed because of eating to much. C. At times, I tend to eat quickly and then, I feel uncomfortably full afterwards. D. I have the habit of bolting down my food, without really chewing it. When this happens I usually feel uncomfortably stuffed because I've eaten to much. Response Group 2: A Group 3 A. I feel capable to control my eating urges when I want to. B. I feel like I have failed to control my eating more than the average person. C. I feel utterly helpless when it comes to feeling in control of my eating urges. D. Because I feel so helpless about controlling my eating I have become very desperate about trying to get control. Response Group 3: A Group 4 A. I don't have the habit of eating when I'm bored. B. I sometimes eat when I'm bored, but often I'm able to get busy and get my mind off food. C. I have a regular habit of eating when I'm bored, but occasionally, I can use some other activity to get my mind off eating. D. I have a strong habit of eating when I'm bored. Nothing seems to help me breath the habit. Response Group 4: A Group 5 A. I'm usually physically hungry when I eat something. B. Occasionally, I eat something on impulse even though I really am not hungry. C. I have the regular habit of eating foods, that I might not really enjoy, to satisfy a hungry feeling even though physically, I don't need the food. D. Although I'm not physically hungry, I get a hungry feeling in my mouth that only seems to be satisfied when I eat a food, like sandwich, that fills my mouth. Sometimes, when I eat the food to satisfy my mouth hunger, I then spit the food out so I won't gain weight. Response Group 5: A Group 6 A. I don't feel any guilt or self-hate after I overeat. B. After I overeat, occasionally I feel guilt or self-hate. C. Almost all the time I experience strong guilt or self-hate after I overeat. Response Group 6: A Group 7 A. I don't lose total control of my eating when dieting even after periods when I overeat. B. Sometimes when I eat a forbidden food on a diet, I feel like I blew it and eat even more. C. Frequently, I have the habit of saying to myself, I've blown it now, why not go all the way, when I overeat on a diet. When that happens I eat more. D. I have a regular habit of starting a strict diets for myself but I break the diets by going on an eating binge. My life seems to be either a feast or famine. Response Group 7: D Group 8 A. I rarely eat so much food that I feel uncomfortably stuffed afterwards. B. Usually about once a month, I each such a quantity of food, I end up feeling very stuffed. C. I have regular periods during the month when I eat large amounts of food, either at mealtime or at snacks. D. I eat so much food that I regularly feel quite uncomfortable after eating and sometimes a bit nauseous. Response Group 8: A Group 9 A. My level of calorie intake does not go up very high or go down very low on a regular basis. B. Sometimes after I overeat, I will try to reduce my caloric intake to almost nothing to compensate for the excess calories I've eaten. C. I have a regular habit of overeating during the night. It seems that my routine is not to be hungry in the morning but overeat in the evening. D. In my adult years, I have had week-long periods where I practically starve myself. This follows periods when I overeat. It seems I live a life of either feast or famine. Response Group 9: A Group 10 A. I usually am able to stop eating when I want to. I know when enough is enou gh. B. Every so often, I experience a compulsion to eat which I can't seem to control. C. Frequently, I experience strong urges to eat which I seem unable to control, but at other times I can control my eating urges. D. I feel incapable of controlling urges to eat. I have a fear of not being able to stop eating voluntarily. Response Group 10: B Group 11 A. I don't have any problem stopping eating when I feel full. B. I usually can stop eating when I feel full but occasionally overeat leaving me feeling uncomfortably stuffed. C. I have a problem stopping eating once I start and usually I feel un comfortably stuffed after I eat a meal. D. Because I have a problem not being able to stop eating when I want, I sometimes have to induce vomiting to relieve my stuffed feeling. Response Group 11: B Group 12 A. I seem to eat just as much when I'm with others, Family social gatherings as when I'm by myself. B. Sometimes, when I'm with other persons, I don't eat as much as I want to eat because I'm self-conscious about my eating. C. Frequently, I eat only a small amount of food when others are present, because I'm very embarrassed about my eating. D. I feel so ashamed about overeating that I pick times to overeat when I know no one will see me. I feel like a closet eater. Response Group 12: A Group 13 A. I eat three meals a day with only an occasional between meal snack. B. I eat 3 meals a day, but I also normally snack between meals. C. When I am snacking heavily, I get in the habit of skipping regular meals. D. There are regular periods when I seem to be continually eating, with no planned meals. Response Group 13: D Group 14 A. I don't think much about trying to control unwanted eating urges. B. At least some of the time, I feel my thoughts are pre-occupied with trying to control my eating urges. C. I feel that frequently I spend much time thinking about how much I ate or about trying not to eat anymore. D. It seems to me that most of my waking hours are pre-occupied by thoughts about eating or not eating. I feel like I'm constantly struggling not to eat. Response Group 14: A Group 15 A. I don't think about food a great deal. B. I have strong craving for food but they last only for brief periods of time. C. I have days when I can't seem to think about anything else but food. D. Most of my days seem to be pre-occupied with thoughts about food. I feel like I live to eat. Response Group 15: A Group 16 A. I usually know whether or not I'm physically hungry. I take the right portion of food to satisfy me. B. Occasionally, I feel uncertain about knowing whether or not I'm physically hungry. A these times it's hard to know how much food I should take to satisfy me. C. Even though I might know how many calories I should eat, I don't have any idea what is a normal amount of food for me. Response Group 16: C Binge Eating Score: 12 Score less than 17 Minimal Risk Score between 18-26 Moderate Risk Score between 27-46 High Risk Assessment & Plan Assessment & Plan (1) Adjustment disorder, unspecified: Code(s): F43.20 - Adjustment disorder, unspecified Plan Pt is cleared from Bh standpoint but will follow up in 1 month for support. Next leena: 09/12/2024 at 8am, Telehealth Telehealth Telehealth Telehealth Platform: [employer] Location of provider rendering services: practice address Location of patient: other (Work. ) Patient Identification confirmed using: Name, : Yes Telehealth method: video Patient verbally consented to treatment: Yes Patient verbally consented to billing insurance company: Yes Patient informed of any privacy concerns related to visit: Yes Minutes spent on Phone/Video with Pt.: 60 Coding Level of Care Code Established Pt Tele Psytx >53 mins (28810) Patient Type Established Diagnoses Adjustment disorder, unspecified F43.20 Time Spent (min) 50 Comment Start time: 10:10am, End time: 11:10am.
== END ==
LOC: HO.HBST 10:13
PROVIDERS: PCP Family Medicine; Visit Provider Counselor Mental Health
DX: F43.20 Adjustment disorder, unspecified (principal)
CPT/HCPCS: 90837

== ENCOUNTER 2024-09-20 08:14 | Outpatient (REF) | payer BC, SELFPAY ==
--- NOTE | ~2024-09-20 | FL_ITS ---
EXAMINATION: XR FLUOROSCOPY UPPER GI WITH AIR CLINICAL INFORMATION: Preoperative evaluation prior to bariatric surgery COMPARISON: None TECHNIQUE: Fluoroscopic air contrast upper GI examination was performed utilizing standard techniques with thin and thick barium and effervescent granules. Numerous spot images were obtained. FINDINGS: Dual and single contrast images of the esophagus demonstrate normal caliber, contour, and mucosal pattern. Mild cricopharyngeal achalasia is present. No evidence of stricture, mass, or ulcerations identified. Esophageal peristalsis was somewhat disordered. No evidence of hiatus hernia identified. No significant gastroesophageal reflux was seen during the course of the examination and on reflux views. Surgical clips are present in the right upper quadrant. Dual contrast and single contrast images of the stomach demonstrated a normal contour. The gastric rugal folds have a thickened appearance, suggestive of gastritis. And mucosal pattern without evidence of mass, ulceration, or other abnormality. Contrast freely passed into the gastric antrum and duodenal bulb without delay. Single and air-contrast images of the duodenal bulb demonstrate no abnormality. The duodenal sweep has a normal appearance, course, and mucosal fold appearance. The imaged proximal jejunum has a normal fold pattern and caliber. FLUOROSCOPY TIME: 3 minutes 40 seconds Number of Spot Images: 6 Number of Cine: 13 DOSE AREA PRODUCT: 2918 uGy-m2 (microgray-meter squared) FL/FL upper GI w air IMPRESSION: 1. Mild cricopharyngeal achalasia. 2. Disordered esophageal peristalsis. 3. Thickened appearance the gastric rugal folds, suggestive of gastritis. 4. Status post cholecystectomy. This procedure was performed by Nash Diaz PA-C, and supervised by Dr. Piña Electronically signed by: Sourav Piña MD 09/20/2024 03:16 PM [facility]
== END 2024-09-20 08:15 | disposition home or self-care (01) ==
LOC: HO.XRAY 08:14
PROVIDERS: PCP Family Medicine; Visit Provider Surgery
DX: E66.01 Morbid (severe) obesity due to excess calories (principal); G47.33 Obstructive sleep apnea (adult) (pediatric); K21.9 Gastro-esophageal reflux disease without esophagitis; I10 Essential (primary) hypertension; D68.2 Hereditary deficiency of other clotting factors; J45.909 Unspecified asthma, uncomplicated
CPT/HCPCS: 74246

== ENCOUNTER → 2024-09-20 08:16 | Outpatient (BNV) | payer BC, SELFPAY | PROVIDERS: PCP Family Medicine; Visit Provider Physician Assistant Surgical | DX: K22.0 Achalasia of cardia (principal); K29.70 Gastritis, unspecified, without bleeding; Z01.818 Encounter for other preprocedural examination | CPT/HCPCS: 74246 ==

== ENCOUNTER → 2024-09-28 08:13 | Outpatient (BNVA) | payer BC, SELFPAY | PROVIDERS: PCP Family Medicine; Visit Provider Counselor Mental Health ==

== ENCOUNTER → 2024-09-28 08:13 | Outpatient (AMB) | payer BC, SELFPAY ==
--- NOTE | 2024-09-28 08:05 | A.OFFWM_ITS ---
Intake Intake Visit Reasons: VIDEO BH F/U Allergies amitriptyline Allergy (Intermediate, Verified 07/28/24 07:26) Rash prochlorperazine Allergy (Intermediate, Verified 07/28/24 07:26) Anxiety Sulfa (Sulfonamide Antibiotics) Allergy (Intermediate, Verified 07/28/24 07:26) rash soy Allergy (Mild, Verified 07/28/24 07:26) Gastrointestinal Upset PFSH Medical History Abnormal EKG Asthma Factor V deficiency GERD (gastroesophageal reflux disease) DJD (degenerative joint disease) Hypertension Obstructive sleep apnea on CPAP Morbid obesity Surgical History Hx of thyroidectomy Hx of hysterectomy Hx laparoscopic cholecystectomy History of tonsillectomy Family History Mother Breast cancer Father Breast cancer Social History Alcohol intake: current Alcohol intake frequency: a few times a month Comment: social Patient Tobacco Use Status: Never used Tobacco Substance Use Type: Marijuana Behavioral Health Assessment Weight Management Therapy Therapy Notes Details Subjective: PT was hospitalized 3 weeks ago due to stomach issues. (Colitis) PT reports she feels she's not getting the support she needs from the provider, as she would like more encounters not only texting. PT reports struggling with snakes and is now doing bars. Also not exercising. Ojn the other hand PT shares other sources of stress. Objective: PT presents for a F/up visit via Telehealth. Active listening, validated feelings and reflected on sources of stress, triggers, challenges around physical health and with services. Brainstormed ways she is being supported, and provided education about how the program works, also identified ways she might feel supported. Processed challenges with exercise, and created a plan to aim for at least 4 days at week on her treadmill, suggested to pair this activity with something she likes, cuah as listening to music, audioooks, podcast or watching a tv show. Provided with stress management skills and with strategies to manage upcoming holidays to remain on track with meal plan. CBT, and interpersonal counseling approach used. Assessment/Response: * Mental status: WNL * Risk reported/identified: None PT active and cooperative. Responded well to interventions. Plan: follow up after the holidays per client's request. Assessment & Plan Assessment & Plan (1) Adjustment disorder, unspecified: Code(s): F43.20 - Adjustment disorder, unspecified Plan Pt is cleared from Bh standpoint but will continue following up with this provider for support. Next leena: 10/24/2024 at 8am, telehealth Telehealth Telehealth Telehealth Platform: [employer] Location of provider rendering services: other (Home office. [place], [place]) Location of patient: other (Work. [place]) Patient Identification confirmed using: Name, : Yes Telehealth method: video Patient verbally consented to treatment: Yes Patient verbally consented to billing insurance company: Yes Patient informed of any privacy concerns related to visit: Yes Minutes spent on Phone/Video with Pt.: 55 Coding Level of Care Code Established Pt Tele Psytx >53 mins (71263) Patient Type Established Diagnoses Adjustment disorder, unspecified F43.20 Time Spent (min) 55
== END ==
LOC: HO.HBST 08:13
PROVIDERS: PCP Family Medicine; Visit Provider Counselor Mental Health
DX: F43.20 Adjustment disorder, unspecified (principal)
CPT/HCPCS: 90837

== ENCOUNTER 2024-12-01 08:07 | Outpatient (AMB) | payer BC, SELFPAY ==
--- NOTE | 2024-12-01 08:00 | A.OFFWM_ITS ---
Intake Intake Visit Reasons: VIDEO BH F/U Allergies amitriptyline Allergy (Intermediate, Verified 07/28/24 07:26) Rash prochlorperazine Allergy (Intermediate, Verified 07/28/24 07:26) Anxiety Sulfa (Sulfonamide Antibiotics) Allergy (Intermediate, Verified 07/28/24 07:26) rash soy Allergy (Mild, Verified 07/28/24 07:26) Gastrointestinal Upset PFSH Medical History Abnormal EKG Asthma Factor V deficiency GERD (gastroesophageal reflux disease) DJD (degenerative joint disease) Hypertension Obstructive sleep apnea on CPAP Morbid obesity Surgical History Hx of thyroidectomy Hx of hysterectomy Hx laparoscopic cholecystectomy History of tonsillectomy Family History Mother Breast cancer Father Breast cancer Social History Alcohol intake: current Alcohol intake frequency: a few times a month Comment: social Patient Tobacco Use Status: Never used Tobacco Substance Use Type: Marijuana Behavioral Health Assessment Weight Management Therapy Therapy Notes Details Subjective: The patient reports ongoing illness since the time of her last hospitalization. She reflects on her own mental biases and expresses feelings of anxiety and guilt. Objective: The patient presents for a follow-up visit via Telehealth. Supportive listening implemented throughout the session. A behavioral activation plan was discussed and implemented. Cognitive Behavioral Therapy (CBT) techniques, including cognitive challenging and reframing, were utilized. Also explored strategies for maintaining consistency with physical activity and exercise. Assessment/Response: * Mental Status: The patient is alert and oriented, exhibiting signs of distress related to anxiety and guilt. * Risk Reported/Identified: No immediate risk identified at this time. Food/Weight/Diet Expectations of change The initial goal to lose 10% of her weight before surgery, which is about 24 lbs. Ultimate weight goal: 218lbs before surgery PT started the program on 07/08/2024 at 242 Lbs Most recent weight as of 11/29/2024: 233.9Lbs PT is implementing the following: The current meal plan is only shakes and bars. Exercise plan: treadmill 4 days a week and does pilates every Thursday. Assessment & Plan Assessment & Plan (1) Adjustment disorder, unspecified: Code(s): F43.20 - Adjustment disorder, unspecified Plan PT is cleared from BH standpoint but will continue following up with this provider for support. Next leena: in about 3-4 weeks. Telehealth Telehealth Telehealth Platform: [employer] Location of provider rendering services: other (Home office. [place], [place]) Location of patient: other (Work. [place]) Patient Identification confirmed using: Name, : Yes Telehealth method: video Patient verbally consented to treatment: Yes Patient verbally consented to billing insurance company: Yes Patient informed of any privacy concerns related to visit: Yes Minutes spent on Phone/Video with Pt.: 60 Coding Level of Care Code Established Pt Tele Psytx >53 mins ([id number]) Patient Type Established Diagnoses Adjustment disorder, unspecified F43.20 Time Spent (min) 60
== END 2024-12-01 09:17 | disposition home or self-care (01) ==
LOC: HO.HBST 08:07
PROVIDERS: PCP Family Medicine; Visit Provider Counselor Mental Health
DX: F43.20 Adjustment disorder, unspecified (principal)
CPT/HCPCS: 90837

== ENCOUNTER 2024-12-21 08:20 | Outpatient (AMB) | payer BC, SELFPAY ==
--- NOTE | 2024-12-21 08:05 | MHC.WMTHER ---
Intake Intake Visit Reasons: VIDEO BH F/U Allergies amitriptyline Allergy (Intermediate, Verified 07/28/24 07:26) Rash prochlorperazine Allergy (Intermediate, Verified 07/28/24 07:26) Anxiety Sulfa (Sulfonamide Antibiotics) Allergy (Intermediate, Verified 07/28/24 07:26) rash soy Allergy (Mild, Verified 07/28/24 07:26) Gastrointestinal Upset PFSH Medical History Abnormal EKG Asthma Factor V deficiency GERD (gastroesophageal reflux disease) DJD (degenerative joint disease) Hypertension Obstructive sleep apnea on CPAP Morbid obesity Surgical History Hx of thyroidectomy Hx of hysterectomy Hx laparoscopic cholecystectomy History of tonsillectomy Family History Mother Breast cancer Father Breast cancer Social History Alcohol intake: current Alcohol intake frequency: a few times a month Comment: social Patient Tobacco Use Status: Never used Tobacco Substance Use Type: Marijuana Behavioral Health Assessment Weight Management Therapy Therapy Notes Details Subjective: PT presents feeling frustrated and ready to give up . she has been dealing with low motivation and feeling stressed. PT shared some factors/barriers on her [facility] commitment. Objective: PT present for a f/up visit via telehealth. Used CBT-interventions for mindset, negative thinking (self-talk). Reflected on her behaviors and things that are under/out of her control. Worked on decision making to increase behaviors/choices that fall within her control. Behavioral activation plan: meal prep, at least 30 min of treadmill. PT advised to discuss with Dr about other shake options as she's having stomach issues with the ones she's using. Assessment/Response: Mental status: Frustration, down, mild-mod stress. some mild functioning issues. Risk reported/identified: None PT was active and engaged. Responded well to interventions and seemed aware of her own role in current issues as well of need to strengthening mindset and decision making. Food/Weight/Diet Expectations of change The initial goal to lose 10% of her weight before surgery, which is about 24 lbs. Ultimate weight goal: 218lbs before surgery PT started the program on 07/08/2024 at 242 Lbs Most recent weight as of 11/29/2024: 233.9Lbs Weight as of 12/13/24: 234Lbs PT is implementing the following: The current meal plan is only shakes and bars. Exercise plan: treadmill 4 days a week and does pilates every Thursday. Assessment & Plan Assessment & Plan (1) Adjustment disorder, unspecified: Code(s): F43.20 - Adjustment disorder, unspecified Plan PT is cleared from BH standpoint but will continue following up with this provider for support. f/up in 4 weeks. Next leena: 01/18/25 at 8am, TH Telehealth Telehealth Telehealth Platform: [employer] Location of provider rendering services: other (Home office. [place], [place]) Location of patient: other ([facility]. [place]) Patient Identification confirmed using: Name, : Yes Telehealth method: video Patient verbally consented to treatment: Yes Patient verbally consented to billing insurance company: Yes Patient informed of any privacy concerns related to visit: Yes Minutes spent on Phone/Video with Pt.: 55 Coding Level of Care Code Established Pt Tele Psytx >53 mins ([id number]) Patient Type Established Diagnoses Adjustment disorder, unspecified F43.20 Time Spent (min) 55
== END 2024-12-21 10:33 | disposition home or self-care (01) ==
LOC: HO.HBST 08:20
PROVIDERS: PCP Family Medicine; Visit Provider Counselor Mental Health
DX: F43.20 Adjustment disorder, unspecified (principal)
CPT/HCPCS: 90837